=== PATIENT | male | born 1995 | race Caucasian/White ===

== ENCOUNTER 2018-07-20 08:59 | Emergency (ER) | payer SELFPAY ==
[~2018-07-20] VITALS: Ht 180.3 cm; Wt 125.0 kg
[2018-07-20 09:15] VITALS: BP 135/74; Ht 180.3 cm; Wt 125.0 kg
== END 2018-07-20 12:13 | disposition left against medical advice (07) ==
LOC: D.ER 08:59
DX: R59.9 Enlarged lymph nodes, unspecified (principal)

== ENCOUNTER 2018-11-04 02:42 | Emergency (ER) | payer SELFPAY ==
[~2018-11-04] VITALS: Ht 180.3 cm; Wt 118.2 kg
[2018-11-04 02:45] VITALS: Ht 180.3 cm; Wt 118.2 kg
[2018-11-04] MEDS ORDERED: KEFLEX500 MG PO (03:22)
[2018-11-04] MEDS ORDERED: TYLENOL W/CODEI1 TAB PO (03:22)
[2018-11-04 03:29] VITALS: BP 122/74
== END 2018-11-04 03:29 | disposition home or self-care (01) ==
LOC: D.ER 02:42
DX: S61.411A Laceration without foreign body of right hand, initial encounter (principal); W25.XXXA Contact with sharp glass, initial encounter; Y93.89 Activity, other specified; Y92.019 Unspecified place in single-family (private) house as the place of occurrence of the external cause